=== PATIENT | male | born 2005 | race Caucasian/White ===

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

== ENCOUNTER 2025-01-05 16:31 | Emergency (ER) | payer OTHER, SELFPAY ==
[2025-01-05 16:37] VITALS: BP 137/54; PULSE 78; TEMP 36.3; O2SAT 99; BMI 22.1
--- NOTE | 2025-01-05 18:07 | XRR_ITS ---
PROCEDURE INFORMATION: Exam: XR Left Finger(s) Exam date and time: 01/05/2025 6:08 PM Age: 19 years old Clinical indication: Injury or trauma; Other: Cut lt pointer finger with knife; Laceration; Left; Index finger TECHNIQUE: Imaging protocol: Radiologic exam of the left fingers. Views: Minimum 2 views. COMPARISON: No relevant prior studies available. FINDINGS: Bones/joints: Normal. Soft tissues: Normal. XR/XR finger LT min 2V [id number] IMPRESSION: No acute findings. No definite foreign body.
[2025-01-05] MEDS: tetanus-dipt-pertussis 0.5 mL SDV IM (18:48)
--- NOTE | 2025-01-05 19:16 | W.ED.WOUNDLC ---
HPI - Wound/Laceration General: Chief Complaint: Wound/Laceration Stated Complaint: L pointer finger cut Time Seen by Provider: 01/05/25 17:59 History of Present Illness: Patient is a 19-year-old male that was utilizing a standing drill working on fabrication, as he pulled the drill, it was still going, his glove slipped around the drill and cut a flap in his left index finger. He had bruising to his distal hand as well. This occurred just prior to arrival. Tetanus was not up-to-date. Associated symptoms: Reports nausea; Denies vomiting Related Data Previous Rx's ?Medication ?Instructions ?Recorded bupropion HCl 300 mg 24 hr tablet, 300 mg PO QAM #30 tabs 10/07/21 extended release (Wellbutrin XL) escitalopram oxalate 20 mg tablet 20 mg PO DAILY #30 tabs 10/07/21 (Lexapro) cephalexin 500 mg capsule 500 mg PO BID 3 days #6 caps 01/05/25 Allergies Allergy/AdvReac Type Severity Reaction Status Date / Time No Known Allergies Allergy Verified 01/05/25 16:44 Review of Systems General: Reports: 10 or more systems reviewed and unremarkable except in HPI and below Card: Denies: chest pain or palpitations GI: Reports: nausea; Denies: abdominal pain or vomiting : Denies: flank pain or difficulty urinating Musc: Denies: neck pain or back pain Skin/Breast: Reports: skin tenderness and surgical incision; Denies: skin swelling Neuro: Denies: headache(s), numbness in extremities, weakness in extremities, sensory changes or lack of coordination [facility] PFSH: Social History (Updated 01/17/22 @ 13:23 by Stephanie Guerra) Smoking and tobacco/nicotine status: never used tobacco/nicotine Second hand smoke exposure: No Alcohol intake: never Substance/Drug Use: never Current gender identity: Male Physical Exam Const: COMMON NORMALS: no acute distress, average body habitus and patient oriented x3 HENMT: COMMON NORMALS: normocephalic and atraumatic HEAD & SCALP: normocephalic and atraumatic Lymph: LYMPHATIC: no lymphadenopathy noted Resp: COMMON NORMALS: normal respiratory effort, No retractions and clear to auscultation bilaterally AUSCULTATION: clear to auscultation bilaterally Cardio: COMMON NORMALS: regular rate and regular rhythm RATE: regular rate RHYTHM: regular rhythm GI: COMMON NORMALS: Normal to inspection, nondistended, normoactive bowel sounds present, Soft to palpation, non-tender and No hepatosplenomegaly present PALPATION: Yes Soft to palpation and Yes No hepatosplenomegaly present : COMMON NORMALS: Yes no CVA tenderness BLADDER/KIDNEY EXAM: Yes no CVA tenderness Back/Pelvis: COMMON NORMALS: no CVA tenderness Extremity: COMMON NORMALS: full ROM and capillary refill normal; negative for normal to inspection LEFT UPPER EXTREMITY: Yes hand & digits Left hand and digits: Yes inspection (laceration), Yes ROM (intact), Yes neurovascular exam and Yes tendon exam (intact) Neuro: COMMON NORMALS: patient oriented x3 Psych: COMMON NORMALS: mental status grossly normal, Normal thought process present, cooperative, normal affect and speech normal SPEECH: Yes normal speech THOUGHT PROCESS: Normal thought process present Skin: COMMON NORMALS: no rashes or lesions noted NARRATIVE SKIN EXAM: Laceration to left posterior index fever GENERAL SKIN EXAM: no rashes or lesions noted Procedures Laceration Laceration 1: Site: hand Side (If applicable): left Size (cm): 4 Description: flap Depth: simple, single layer Local Anesthetic: lidocaine 1% Amount of anesthesia used (mL): 4 Pre-repair: wound explored Skin layer closed with: nylon Size (cm): 4-0 Number of sutures: 3 Course Vital Signs: Vital signs: Vital Signs Temperature 97.3 F L 01/05/25 16:37 Pulse Rate 88 01/05/25 19:30 Blood Pressure 102/75 01/05/25 19:30 Pulse Oximetry 98 01/05/25 19:30 Oxygen Delivery Me thod Room Air 01/05/25 16:37 MDM - Wound/Laceration Medical Decision Making Patient is a 19-year-old male that had a flap laceration after it was caught in a standing drill press that he was raising that had not completely shut off, caught his gloves, and the association laceration. No acute findings were found on x-ray. This area was cleaned well, Betadine, and laceration was repaired. Medical Records I reviewed the patient's medical records. Lab Data I reviewed the patient's lab results. Radiology Impressions Finger X-Ray 01/05/25 18:07 IMPRESSION: No acute findings. No definite foreign body. All radiology interpretation(s) finalized by discharge Discharge Plan Discharge Patient Disposition: Home Clinical Impression: Laceration Condition: Stable Prescriptions: New cephalexin 500 mg capsule 500 mg PO BID 3 Days Qty: 6 0RF No Action bupropion HCl [Wellbutrin XL] 300 mg tablet extended release 24 hr 300 mg PO QAM Qty: 30 2RF escitalopram oxalate [Lexapro] 20 mg tablet 20 mg PO DAILY Qty: 30 2RF Discharge Orders: Discharge ED (Routine); Ordered 01/05/25 Ordered By: Marcella Roman Discharge Diet: Usual diet Discharge Activity: Resume usual activity Patient Instructions: Laceration (ED), Patient Portal & Ellis Instructions Activity Restrictions/Additional Instructions: - Remove sutures in 10-12 days -Take antibiotics as prescribed. Eat active culture yogurt or take probiotic daily to avoid infectious diarrhea associated with antibiotics -You may apply antibiotic ointment the first 24 hours, wrap, then unwrap, make sure it is clean daily with some type of antibacterial soap, and apply Vaseline. You may keep unwrapped after 24 hours. -If there is increasing redness outside of localized redness from placing it back together, drainage, fever greater than 100.4 ?F, return to ED Print Language: Syrian Coding Level of Care Code ED Quantitative Analyst Marketing for Mckenna Barker
[2025-01-05 19:30] VITALS: BP 102/75; PULSE 88; O2SAT 98
== END 2025-01-05 19:35 | disposition home or self-care (01) ==
PROVIDERS: Emergency Provider Physician Assistant
DX: S61.211A Laceration without foreign body of left index finger without damage to nail, initial encounter (principal); W29.8XXA Contact with other powered hand tools and household machinery, initial encounter
CPT/HCPCS: 12002; 73140; 90471; 90715; 99283; J9999